=== PATIENT | male | born 1945 | race Caucasian/White ===

== ENCOUNTER 2020-04-01 06:25 | Day surgery (SDC) | payer OTHER ==
[~2020-04-01] VITALS: Ht 180.3 cm; Wt 86.4 kg
[~2020-04-01 06:25] MED LIST: CITRUCEL500 MG PO; DAILY MULTIPLE1 EACH PO; OMEPRAZOLE40 MG PO; SYNTHROID25 MCG PO; ZESTRIL10 MG PO
[2020-04-01] MEDS ORDERED: DICLOFENAC SODI75 MG PO (07:48)
[2020-04-01] MEDS ORDERED: HYDROCODON-ACE1 EA10 PO (07:48)
--- NOTE | 2020-04-01 07:49 | NUR ---
04/01/20 0749 Josefina Larkin 0744- PT TO PACU IN SUPINE POSITION WITH EYES CLOSED AND ORAL AIRWAY IN PLACE. DOES NOT RESPOND TO VERBAL OR TACTILE STIMULI. BREATHING EASY AND UNLABORED. SPO2 >95% ON 6 LO2 VIA SIMPLE MASK. RLE WARM WITH BRISK CAP REFIL.
--- NOTE | 2020-04-01 08:55 | NUR ---
MEDICATED FOR INCREASING PAIN PER EMAR. HELD VOLTARIN AFTER DISCUSSING MEDICATION WITH PHARMACIST STEPHON MURILLO. PT RECIEVED TORADOL AT 0730 DURING PROCEDURE. PT PROVIDED WITH CRACKERS, PUDDING, AND WATER.
--- NOTE | 2020-04-04 07:39 | OR ---
[facility] [address], [place] [address] Signed DATE OF OPERATION: 04/01/2020 SURGEON: Harman Noel MD PREOPERATIVE DIAGNOSIS: Medial meniscal tear, right knee. POSTOPERATIVE DIAGNOSES: 1. Medial meniscal tear, right knee. 2. Lateral meniscus tear, right knee.. PROCEDURE PERFORMED: Right knee arthroscopy with partial medial and lateral meniscectomies. GRAIN MILLER HELPER: None. ANESTHESIA: General. BLOOD LOSS: Minimal. BRIEF HISTORY: Cheng is a 74-year-old gentleman with pain and locking in his knee. There was evidence on the MRI of a significant medial meniscus tear. Risks and benefits were discussed with him and since he had very little underlying arthritis, he wished to proceed. DESCRIPTION OF PROCEDURE: Once consent was obtained, he was taken to the operating room. After adequate anesthesia, he was placed on the operating table. All downside pressure points were well padded. The left leg was flexed, abducted, and externally rotated on a well-padded leg delgado. The right was placed in a well-padded proximal leg delgado with no tourniquet. The portal sites were preinjected under an alcohol prep. The leg was then prepped and draped in a standard sterile fashion. Standard inferolateral and superolateral portals were made. The scope was introduced in the knee. ARTHROSCOPIC FINDINGS: There was moderate synovitis particularly anterior medially. The ACL was somewhat injected but was intact. The PCL was intact. Medial compartment showed a large complex Electronically Signed By: HARMAN NOEL MD 04/04/20 0739 PATIENT NAME: INDU CARDENAS OPERATIVE REPORT DATE OF : 49 REPORT #: [id number] PHYSICIAN: HARMAN NOEL MD PCP: UNASSIGNED DOCTOR REPORT IS CONFIDENTIAL AND NOT TO BE RELEASED WITHOUT AUTHORIZATION [facility] [address], [place] [address] Signed tear extending from the posterior root all the way to the mid medial portion. There were both radial and horizontal components. 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 The lateral compartment showed grade 2 femoral chondromalacia with grade 1 on the tibial side. There was a radial tear at the posterolateral corner. DESCRIPTION OF OPERATION: Standard inferomedial portal was made after localization using a spinal needle. The medial meniscus was resected using the basket forceps followed by the shaver. All debris was evacuated. Attention was then turned to the lateral side. This was trimmed up using basket forceps and again smoothed using the shaver and all debris was evacuated. Several chondral flaps on the femur were also removed. Once this was accomplished, the scope was withdrawn. Portals were closed with 3-0 nylon and the knee was injected with 60 mg of Toradol at the end the case. The wounds were dressed with Adaptic, ABD, and Nitin wrap. He was awakened and taken to the recovery room in satisfactory condition. All sponge, needle, and instrument counts were correct. Harman Noel MD BA/[facility] /[id number] Copies: ~ Electronically Signed By: HARMAN NOEL MD 04/04/20 0739 PATIENT NAME: RONALDINDU NEELAM OPERATIVE REPORT DATE OF : 49 REPORT #: [id number] PHYSICIAN: HARMAN NOEL MD PCP: UNASSIGNED DOCTOR REPORT IS CONFIDENTIAL AND NOT TO BE RELEASED WITHOUT AUTHORIZATION
== END 2020-04-01 09:30 | disposition home or self-care (01) ==
LOC: DS 06:25
PROVIDERS: ATTEND Specialist
PROC: 0SBC4ZZ Excision of Right Knee Joint, Percutaneous Endoscopic Approach (ICD-10-PCS; 2020-04-01)
PROC: 0SBC4ZZ Excision of Right Knee Joint, Percutaneous Endoscopic Approach (ICD-10-PCS; principal; 2020-04-01 08:30)
DX: M23.300 Other meniscus derangements, unspecified lateral meniscus, right knee (principal); M23.303 Other meniscus derangements, unspecified medial meniscus, right knee; M65.88 Other synovitis and tenosynovitis, other site; M94.261 Chondromalacia, right knee; I10 Essential (primary) hypertension; K21.9 Gastro-esophageal reflux disease without esophagitis; E07.9 Disorder of thyroid, unspecified; J30.2 Other seasonal allergic rhinitis; Z79.890 Hormone replacement therapy; Z79.899 Other long term (current) drug therapy; Z88.0 Allergy status to penicillin; Z91.048 Other nonmedicinal substance allergy status
CPT/HCPCS: 01400; J0690; J1100; J1885; J2001; J2250; J2405; J2704